=== PATIENT | male | born 1940 | race Caucasian/White ===

== ENCOUNTER 2021-06-05 09:14 | Emergency (ER) | payer OTHER ==
[~2021-06-05] VITALS: Ht 175.3 cm; Wt 86.2 kg
[~2021-06-05 09:14] MED LIST: BENAZEPRIL HCL20 MG PO; HYDROCODONE-APA1 TA1 PO; KEFLEX500 MG PO; LIPITOR20 MG PO; LOPRESSOR25 PO; NEURONTIN 300M300 M2 PO
[2021-06-05 10:39] LABS: URINE BILIRUBIN NEGATIVE (Negative); URINE BLOOD 3+ (Negative); URINE CLARITY CLEAR; URINE COLOR YELLOW; URINE GLUCOSE-RANDOM NEGATIVE (Negative); URINE KETONES NEGATIVE (Negative); URINE LEUKOCYTES-REFLEX NEGATIVE (Negative); URINE NITRITE-REFLEX NEGATIVE (Negative); URINE PROTEIN 1+ (Negative); URINE SPECIFIC GRAVITY 1.015 (1.005-1.030); URINE UROBILINOGEN 0.2 E.U./dl (0.2-1.0)
[2021-06-05 11:01] LABS: HYALINE CASTS 0-3 Few /LPF (None Seen); SQUAMOUS 0-3 Few /LPF (0-3)
[2021-06-05 11:02] LABS: BACTERIA-REFLEX None Seen /HPF (None Seen); CRYSTALS None Seen /LPF (None Seen); URINE WBC-REFLEX 0-5 Rare /HPF (0-5)
[2021-06-05 11:10] LABS: ABSOLUTE BASOPHILS 0.1 thou/uL (0.0-0.2); ABSOLUTE EOSINOPHILS 0.1 thou/uL (0.0-0.7); ABSOLUTE LYMPHOCYTES 1.1 thou/uL (0.8-5.3); ABSOLUTE MONOCYTES 1.1 thou/uL (0.0-1.2); ABSOLUTE NEUTROPHILS 9.7 thou/uL (1.6-8.1); BASOPHILS 1.1 %; EOSINOPHILS 0.8 %; HEMATOCRIT 35.4 % (42.0-52.0); HEMOGLOBIN 11.5 gm/dL (14.0-18.0); LYMPHOCYTES 8.8 %; MCH 30.9 pg (26.0-34.0); MCHC 32.5 g/dL (28.0-37.0); MONOCYTES 8.7 %; MPV 7.7 fl. (7.2-11.1); NUCLEATED RBCS 0 /100WBC; PLATELET COUNT* 229 thou/uL (150-400); POLYS 80.6 %; RBC 3.73 mil/uL (4.50-6.00); RDW-CV 15.2 % (10.5-14.5); WBC 12.1 thou/uL (4.0-11.0)
[2021-06-05 11:15] LABS: CALCIUM 9.7 mg/dL (8.5-10.1); CREATININE 1.5 mg/dL (0.6-1.3); POTASSIUM 4.9 mmol/L (3.5-5.1)
[2021-06-05 11:22] LABS: ALBUMIN 3.9 g/dL (3.4-5.0); TOTAL BILIRUBIN 0.4 mg/dL (<0.1-1.0); TOTAL PROTEIN 6.8 g/dL (6.4-8.2)
[2021-06-05] MEDS ORDERED: CIPROFLOXACIN500 M1 PO (11:45)
[2021-06-05 11:50] VITALS: BP 165/45
--- NOTE | 2021-06-06 14:36 | EKG ---
[place] [address] ELECTROCARDIOGRAM REPORT Name: DOMINIK SHAH Room: [facility]#: [id number] Admission: 06/05/21 Attend Phys: Discharge: 06/05/21 Date of : 36 Date of Service: 06/05/21 [facility] Report #: [id number] THIS REPORT FOR: //name// [facility] ED Test Date: 2021-06-05 Test Time: 10:07:43 Pat Name: DOMINIK SHAH Department: Room: Gender: Dairy Husbandman: : 1940 Requested By: Grayson Olivarez Order Number: [id number] MD: Eddie Jeff Measurements Intervals Meherrin Rate: 64 P: 47 FL: 169 QRS: 72 QRSD: 95 T: 72 QT: 405 QTc: 418 Interpretive Statements Sinus rhythm Compared to ECG 04/29/2016 16:12:16 Atrial premature complex(es) no longer present Short FL interval no longer present ST (T wave) deviation no longer present Electronically Signed On 06-06-2021 14:35:40 [employer] CONSULTANT by Eddie Jeff [email or web address] <ELECTRONICALLY SIGNED> By: Eddie Jeff MD, [facility] 06/06/21 1435 1007 1007 Eddie Jeff MD, [facility] /EPI
== END 2021-06-05 11:50 | disposition home or self-care (01) ==
LOC: M.ERS 09:14
PROVIDERS: Family Medicine
DX: R31.9 Hematuria, unspecified (principal); E78.00 Pure hypercholesterolemia, unspecified; Z79.899 Other long term (current) drug therapy; Z88.5 Allergy status to narcotic agent